=== PATIENT | female | born 1950 | race Two or more races ===

== ENCOUNTER 2020-03-04 21:53 | Inpatient (IN) ==
--- NOTE | 2020-03-04 22:21 | ERNOTE ---
Dyspnea - General Presenting Symptoms: shortness of breath Time Seen by Provider: 03/04/20 22:14 Source: patient Exam Limitations: no limitations - Immun/Allergies/Home Medications Immunizations: IMMUNIZATION HX Immunizations Up to Date Yes History of Influenza Vaccine Yes Hx Pneumococcal Vaccination Yes Allergies/Adverse Reactions: Allergies penicillin G Allergy (Unknown, Verified 03/04/20 22:08) oxycodone Adverse Reaction (Verified 03/04/20 22:08) hallucinations Home Medications: HOME MEDICATIONS albuterol sulfate 90 mcg/actuation aerosol inhaler 2 inh IH Q4H PRN 10/22/17 [Last Taken Unknown] blood-glucose meter See Dose Instructions .ROUTE .MEDSUPPLY #1 ea 01/10/18 [Last Taken Unknown] lancets See Dose Instructions .ROUTE .MEDSUPPLY #100 ea 01/10/18 [Last Taken Unknown] fluticasone 250 mcg-salmeterol 50 mcg/dose blistr powdr for inhalation 1 inh IH BID #60 ea 01/05/19 [Last Taken Unknown] acetaminophen 325 mg tablet 325 mg PO Q6H PRN 05/24/19 [Last Taken Unknown] potassium chloride 10 mEq capsule,extended release 10 meq PO DAILY cap 06/06/19 [Last Taken Unknown] ropinirole 1 mg tablet 1 mg PO TID PRN #90 tab 08/23/19 [Last Taken Unknown] amlodipine 10 mg tablet 10 mg PO DAILY #90 tab 09/06/19 [Last Taken Unknown] blood sugar diagnostic See Dose Instructions .ROUTE .MEDSUPPLY #100 ea 09/06/19 [Last Taken Unknown] famotidine 40 mg tablet 40 mg PO DAILY #30 tab 09/06/19 [Last Taken Unknown] montelukast 10 mg tablet 10 mg PO QPM #30 tab 09/06/19 [Last Taken Unknown] metoprolol succinate 50 mg tablet,extended release 24 hr 50 mg PO BID #60 tab 09/22/19 [Last Taken Unknown] furosemide 40 mg tablet 40 mg PO DAILY PRN #30 tab 12/07/19 [Last Taken Unknown] venlafaxine 150 mg capsule,extended release 24 hr 150 mg PO DAILY #90 cap 12/13/19 [Last Taken Unknown] losartan 100 mg tablet 100 mg PO DAILY #30 tab 02/14/20 [Last Taken Unknown] ketoconazole 2 % topical cream 1 applic TP BID 14 Days #60 g 02/20/20 [Last Taken Unknown] metformin 500 mg tablet 500 mg PO BID #60 tab 02/20/20 [Last Taken Unknown] - History of Present Illness Narrative: Patient states she thinks she has been more short of breath over the last couple of weeks. Her daughter states that she has been worse over the past 2 to 3 days. When the daughter called mariana the patient was unable to complete full sentences because of her shortness of breath. Patient states she did have some productive sputum with her cough that was clear. Severity: moderate Treatment CERTIFIED OPHTHALMIC SURGICAL ASSISTANT: none Modifying Factors - (Improves): Reports: rest Modifying Factors (Worsens): Reports: activity Review of Systems - Review of Systems Constitutional: Present: See HPI, recent illness, chills, fatigue EYE: Absent: vision changes ENT: Absent: nose congestion, nasal drainage Respiratory: Present: shortness of breath, cough Cardiology: Absent: chest pain, palpitations Gastrointestinal/Abdominal: Present: diarrhea. Absent: nausea, vomiting Genitourinary: Present: frequency. Absent: dysuria Musculoskeletal: Absent: back pain, muscle pain Skin: Absent: rash Neurological: Absent: headache, dizziness/light-headedness Endocrine: Absent: excessive sweating Hematologic/Lymphatic: Absent: easy bruising Psych: Absent: anxiety Medical History (Last Reviewed 03/04/20 @ 22:18 by Maikel Sosa DO) Diverticulitis (Acute) Onset Date: ~10/2019 Gastroesophageal reflux disease (Chronic) Type 2 diabetes mellitus (Chronic) Onset Date: Unknown Morbid obesity (Chronic) Onset Date: Unknown Medial epicondylitis of left elbow (Acute) Onset Date: Unknown Hypertension (Chronic) Onset Date: Unknown Depression (Chronic) Onset Date: Unknown Asthma (Chronic) Onset Date: Unknown Mild acid reflux Onset Date: ~2018 Refused influenza vaccine Onset Date: ~01/31/18 deferred Surgical History: Surgical History (Last Reviewed 03/04/20 @ 22:18 by Maikel Sosa DO) H/O colonoscopy Onset Date: ~04/2018 [facility]: [facility] H/O toe surgery Onset Date: Unknown History of bilateral knee arthroplasty Onset Date: ~2014 History of esophagogastroduodenoscopy (EGD) Onset Date: ~04/2018 [facility]: [facility] History of hysterectomy Onset Date: Unknown History of removal of ovarian cyst Onset Date: Unknown History of shoulder surgery Onset Date: Unknown left Hx of cholecystectomy Onset Date: Unknown Family History: Family History (Last Reviewed 03/04/20 @ 22:18 by Maikel Sosa DO) Father Cancer Mother Melanoma Social History: (Last Reviewed 03/04/20 @ 22:18 by Maikel Sosa DO) Social History: adopted: No foster care: No fdc: No Marital status: household members: spouse number of children: 2 caregiver/support person: No current occupational status: retired Highest level of school completed/degree received: high school graduate Service: No Tobacco: Smoking Status: Never smoker Alcohol: alcohol intake: current alcohol intake frequency: holiday/special occasion Substance Use: substance use type: does not use Dietary Habits: caffeine: Yes caffeine comment: some days eating out: rarely or never Physical Exam - Physical Exam General Appearance: Present: wd/wn, alert, no apparent distress Head Exam: Present: normal inspection, no evidence of injury Eye Exam: Normal inspection: bilateral Neck: Present: normal inspection, nontender, supple Respiratory: Present: normal breath sounds, no accessory muscle use, lungs clear, other - Mild tachypnea Cardiovascular/Chest: Present: no murmur, tachycardia Gastrointestinal/Abdominal: Present: nontender, nondistended, soft Back Exam: Present: normal inspection, normal range of motion, no vertebral tenderness Extremity Exam: Present: normal inspection, normal range of motion, no edema Neurological Exam: Present: alert, oriented, normal mood/affect, no motor/sensory deficits Skin Exam: Present: normal color, warm/dry Lymphatic Exam: Present: no adenopathy Progress - Results and Orders Patient's Lab Results:: I have reviewed the patient's lab results. Results and Orders: Laboratory Tests 03/04/20 03/04/20 03/04/20 22:30 22:30 22:30 WBC 7.1 Hgb 12.9 Hct 39.9 Plt Count 176 Sodium 131 L Potassium 3.7 Chloride 93 L Anion Gap 14.3 H BUN 13 Creatinine 0.77 Random Glucose 182 H Lactic Acid, Venous 1.5 Calcium 8.8 Total Bilirubin 0.6 AST 51 H ALT 29 Alkaline Phosphatase 68 B-Natriuretic Peptide 174 Total Protein 7.4 Albumin 2.8 L SARS-CoV-2 (PCR) 03/04/20 22:55 WBC Hgb Hct Plt Count Sodium Potassium Chloride Anion Gap BUN Creatinine Random Glucose Lactic Acid, Venous Calcium Total Bilirubin AST ALT Alkaline Phosphatase B-Natriuretic Peptide Total Protein Albumin SARS-CoV-2 (PCR) Detected H - Vital Signs Patient's Vital Signs:: I have reviewed the patient's vital signs. Vital Signs: Vital Signs 03/04/20 22:09 Temperature 38.6 C H Pulse Rate 108 H Respiratory Rate 25 H Blood Pressure 129/96 H O2 Sat by Pulse Oximetry 86 L - X-Ray X-Ray #1 X-Ray: chest Interpretation: Interp. by me X-ray Comments: Patchy infiltrates mainly on the left. No pleural effusions no pneumothorax. Cardiac silhouette is borderline enlarged. - Progress/Reassessment Chief Complaint: Dyspnea Progress Note-Subjective: 03/05/20 00:[address] Zamarripa he agrees with admission for Covid pneumonia. Departure Clinical Impression: Pneumonia due to 2019 novel coronavirus - Departure Disposition: Still a patient Condition: Fair Referrals: Janki Montoya FNP [Primary Care Provider] -
[2020-03-04 22:39] LABS: Hematocrit 39.9 % (37.0-47.0); Hemoglobin 12.9 gm/dL (12.5-16.0); Mean Cell Volume 85.3 fl (78-100); Mean Corpuscular Hemoglobin 27.6 pg (27-31); Mean Corpuscular Hgb Conc 32.3 g/dl (32-36); Mean Platelet Volume 11.6 fl (8-12.5); Neutrophil % 70.1 % (42-75.0); Platelet Count 176 K/mm3 (150-450); Red Blood Count 4.68 M/mm3 (4.2-5.4); Red Cell Distribution Width 13.7 % (11.5-14.0); White Blood Count 7.1 K/mm3 (4.0-10.5)
[2020-03-04 23:09] LABS: Albumin * 2.8 gm/dl (3.4-5.0); Anion Gap 14.3 mmol/L (6.8-13.8); BUN/Creatinine Ratio 16.9 (9.0-21.6); Bilirubin, Total 0.6 mg/dL (0.0-1.1); Ca. Corrected For Albumin 9.4 mg/dL (8.4-10.2); Calcium * 8.8 mg/dL (7.9-10.9); Carbon Dioxide 27.4 mmol/L (24-32.6); Potassium 3.7 mmol/L (3.4-4.6); Total Protein 7.4 gm/dL (6.2-8.2)
[2020-03-04] MEDS ORDERED: ACETAMINOPHEN 500 MG TABLET PO ONE (23:25)
[2020-03-05] MEDS ORDERED: ACETAMINOPHEN 325 MG TABLET PO PRN (09:46)
[2020-03-05] MEDS ORDERED: rOPINIRole HCL 1 MG TABLET PO PRN (09:46)
[2020-03-05] MEDS ORDERED: FUROSEMIDE 40 MG TABLET PO PRN (09:46)
[2020-03-05] MEDS: FAMOTIDINE 20 MG TABLET PO SCH (10:43)
[2020-03-05] MEDS: metFORMIN HCL 500 MG TABLET PO SCH ×2 (10:44→17:51)
[2020-03-05] MEDS: LOSARTAN POTASSIUM 50 MG TABLET PO SCH (10:44)
[2020-03-05] MEDS: ENOXAPARIN SODIUM 80 MG/0.8 ML DISP.SYRIN SC SCH ×2 (10:44→21:17)
[2020-03-05] MEDS: METOPROLOL SUCCINATE 50 MG TABLET.SA PO SCH ×2 (10:44→20:44)
[2020-03-05] MEDS: amLODIPine BESYLATE 10 MG TABLET PO SCH (10:44)
[2020-03-05] MEDS: VENLAFAXINE HCL 150 MG CAP.SR.24H PO SCH (10:59)
[2020-03-05] MEDS: FLUTICASONE PROPION/SALMETEROL 14 PUFF DISK.W.DEV IH SCH ×2 (11:01→20:41)
[2020-03-05] MEDS: ALBUTEROL SULFATE 200 PUFF INHALER IH PRN (11:01)
[2020-03-05] MEDS: DEXAMETHASONE SODIUM PHOSP/PF 10 MG/ML VIAL IV SCH (11:15)
--- NOTE | 2020-03-05 11:19 | HP ---
Chief Complaint - Chief Complaint Date of Service: 03/05/20 Time of Service: 11:19 Chief Complaint: shortness of breath, cough, hypoxia History of Present Illness: 69 year old female with hx of DM, HTN, morbid obesity admitted due to hypoxia an d shortness of breath. States she hasn't been feeling well for roughly a week, progressively worsened over the last couple days. She was brought to the ER due to this, found to be hypoxic but responded to o2 via NC. SHe was also found to be covid positive. CXR negative in the ER. Normal WBC. Normal chem panel. She was admitted due to hypoxia, SOB. She has had fevers off and on. Medical History (Last Reviewed 03/05/20 @ 06:28 by Jocelyn Hernadez RN) Diverticulitis (Acute) Onset Date: ~10/2019 Gastroesophageal reflux disease (Chronic) Type 2 diabetes mellitus (Chronic) Onset Date: Unknown Morbid obesity (Chronic) Onset Date: Unknown Medial epicondylitis of left elbow (Acute) Onset Date: Unknown Hypertension (Chronic) Onset Date: Unknown Depression (Chronic) Onset Date: Unknown Asthma (Chronic) Onset Date: Unknown Mild acid reflux Onset Date: ~2018 Refused influenza vaccine Onset Date: ~01/31/18 deferred Surgical History: Surgical History (Last Reviewed 03/05/20 @ 06:28 by Jocelyn Hernadez RN) H/O colonoscopy Onset Date: ~04/2018 [facility]: [facility] H/O toe surgery Onset Date: Unknown History of bilateral knee arthroplasty Onset Date: ~2014 History of esophagogastroduodenoscopy (EGD) Onset Date: ~04/2018 [facility]: [facility] History of hysterectomy Onset Date: Unknown History of removal of ovarian cyst Onset Date: Unknown History of shoulder surgery Onset Date: Unknown left Hx of cholecystectomy Onset Date: Unknown Family History: Family History (Last Reviewed 03/05/20 @ 06:28 by Jocelyn Hernadez RN) Father Cancer Mother Melanoma Social History: (Last Reviewed 03/05/20 @ 06:28 by Jocelyn Hernadez RN) Social History: adopted: No foster care: No mcfp: No Marital status: household members: spouse number of children: 2 caregiver/support person: No current occupational status: retired Highest level of school completed/degree received: high school graduate Service: No Tobacco: Smoking Status: Never smoker Alcohol: alcohol intake: current alcohol intake frequency: holiday/special occasion Substance Use: substance use type: does not use Dietary Habits: caffeine: Yes caffeine comment: some days eating out: rarely or never Review Of Systems (GEN) - Review of Systems Generalized/Overall Review: Present: Weakness, Fever. Absent: Chills EENTM: Present: No Symptoms Reported Respiratory: Present: Cough, Shortness of Breath Cardiac: Absent: Chest Pain, Edema Abdominal: Present: No Symptoms Reported Genitourinary: Present: No Symptoms Reported Musculoskeletal: Present: No Symptoms Reported Neurological: Present: No Symptoms Reported Skin: Present: No Symptoms Reported Endocrine: Present: No Symptoms Reported Immunizations: IMMUNIZATION HX Immunizations Up to Date Yes History of Influenza Vaccine Yes Hx Pneumococcal Vaccination Yes Allergies/Adverse Reactions: Allergies Allergy/AdvReac Type Severity Reaction Status Date / Time penicillin G Allergy Unknown Verified 03/04/20 22:08 oxycodone AdvReac hallucinati Verified 03/04/20 22:08 ons Home Medications: HOME MEDICATIONS blood-glucose meter See Dose Instructions .ROUTE .MEDSUPPLY #1 ea 01/10/18 [Last Taken Unknown] lancets See Dose Instructions .ROUTE .MEDSUPPLY #100 ea 01/10/18 [Last Taken Unknown] acetaminophen 325 mg tablet 325 mg PO Q6H PRN 05/24/19 [Last Taken Unknown] ropinirole 1 mg tablet 1 mg PO TID PRN #90 tab 08/23/19 [Last Taken Unknown] amlodipine 10 mg tablet 10 mg PO DAILY #90 tab 09/06/19 [Last Taken Unknown] blood sugar diagnostic See Dose Instructions .ROUTE .MEDSUPPLY #100 ea 09/06/19 [Last Taken Unknown] famotidine 40 mg tablet 40 mg PO DAILY #30 tab 09/06/19 [Last Taken Unknown] montelukast 10 mg tablet 10 mg PO QPM #30 tab 09/06/19 [Last Taken Unknown] metoprolol succinate 50 mg tablet,extended release 24 hr 50 mg PO BID #60 tab 09/22/19 [Last Taken Unknown] losartan 100 mg tablet 100 mg PO DAILY #30 tab 02/14/20 [Last Taken Unknown] ketoconazole 2 % topical cream 1 applic TP BID 14 Days #60 g 02/20/20 [Last Taken Unknown] metformin 500 mg tablet 500 mg PO BID #60 tab 02/20/20 [Last Taken Unknown] Venlafaxine HCl [Venlafaxine HCl ER] 150 mg PO DAILY 03/05/20 [Last Taken Unknown] rOPINIRole HCL [Requip] 1 mg PO TID PRN 03/05/20 [Last Taken Unknown] Exam - Exam Vital Signs: Vital Signs - Last Taken Temp 37.9 C 03/05/20 11:06 Pulse 90 03/05/20 10:44 Resp 24 H 03/05/20 09:21 BP 146/65 03/05/20 10:44 Pulse Ox 93 03/05/20 11:06 Constitutional: Present: Alert, Oriented x3, Mild distress - shortness of breath, weakness ENT Exam: Present: hearing grossly normal Eye Exam: bilateral eye: normal inspection, EOMI Neck: Present: non-tender, supple Respiratory: Present: lungs clear, normal breath sounds Cardiovascular/Chest: Present: regular rate, rhythm, no murmur Abdomen: Present: soft, nontender, obese Skin Exam: Present: normal color, warm/dry Appearance: Present: appropriate appearance, appropriate insight Thoughts: Present: normal thought pattern, normal mood /affect Diagnostic Studies: Abnormal Lab Results 03/04/20 03/04/20 03/04/20 Range/Units 22:30 22:30 22:55 Lymphocytes % 18.3 L (20-51) % Monocytes % 10.9 H (0.0-9) % Lymphocytes # 1.31 L (1.5-3.5) k/mm3 Sodium 131 L (132-142) mmol/L Chloride 93 L (97-106) mmol/L Anion Gap 14.3 H (6.8-13.8) mmol/L Random Glucose 182 H (70-110) mg/dL AST 51 H (0-48) U/L Albumin 2.8 L (3.4-5.0) gm/dl SARS-CoV-2 (PCR) Detected H (NotDetected) Laboratory Results WBC 7.1 K/mm3 (4.0-10.5) 03/04/20 22:30 RBC 4.68 M/mm3 (4.2-5.4) 03/04/20 22:30 Hgb 12.9 gm/dL (12.5-16.0) 03/04/20 22:30 Hct 39.9 % (37.0-47.0) 03/04/20 22: MCV 85.3 fl (78-100) 03/04/20 22: MCH 27.6 pg (27-31) 03/04/20: MCHC 32.3 g/dl (32-36) 03/04/20: RDW 13.7 % (11.5-14.0) 03/04/20: Plt Count 176 K/mm3 (150-450) 03/04/20: MPV 11.6 fl (8-12.5) 03/04/20 22: Immature Gran % (Auto) 0.40 % (0.001-0.429) 03/04/20: Immature Gran # (Auto) 0.03 K/mm3 (0.000-0.0310) 03/04/20: Neutrophils % 70.1 % (42-75.0) 03/04/20 22: Lymphocytes % 18.3 % (20-51) L 03/04/20: Monocytes % 10.9 % (0.0-9) H 03/04/20: Eosinophils % 0.0 % (0.0-3.0) 03/04/20: Basophils % 0.3 % (0.0-1.0) 03/04/20: Nucleated RBC % 0.0 k/mm3 (0-1) 03/04/20 22: Neutrophils # 5.0 K/mm3 (1.3-6.0) 03/04/20: Lymphocytes # 1.31 k/mm3 (1.5-3.5) L 03/04/20: Monocytes # 0.8 k/mm3 (0.0-1.0) 03/04/20: Eosinophils # 0.0 k/mm3 (0.0-0.7) 03/04/20: Absolute Basophils 0.0 k/mm3 (0.0-0.1) 03/04/20 22:30 Sodium 131 mmol/L (132-142) L 03/04/20 22: Plasma Sodium 132 mmol/L (130-142) 03/04/20 22: Potassium 3.7 mmol/L (3.4-4.6) 03/04/20 22:30 Chloride 93 mmol/L (97-106) L 03/04/20 22:30 Carbon Dioxide 27.4 mmol/L (24-32.6) 03/04/20 22:30 Anion Gap 14.3 mmol/L (6.8-13.8) H 03/04/20 22:30 BUN 13 mg/dL (3-23) 03/04/20 22:30 Creatinine 0.77 mg/dL (0.4-1.4) 03/04/20 22:30 Est GFR (Non-Af Amer) 79 mL/min (60-130) D 03/04/20 22:30 BUN/Creatinine Ratio 16.9 (9.0-21.6) 03/04/20 22:30 Random Glucose 182 mg/dL (70-110) H 03/04/20 22:30 Lactic Acid, Venous 1.5 mmol/L (0.4-2.0) 03/04/20 22:30 Calcium 8.8 mg/dL (7.9-10.9) 03/04/20 22:30 Calcium Adj for Albumin 9.4 mg/dL (8.4-10.2) 03/04/20 22:30 Total Bilirubin 0.6 mg/dL (0.0-1.1) 03/04/20 22:30 AST 51 U/L (0-48) H 03/04/20 22:30 ALT 29 U/L (19-67) 03/04/20 22:30 Alkaline Phosphatase 68 U/L (50-170) 03/04/20 22:30 B-Natriuretic Peptide 174 pg/mL (5-325) 03/04/20 22:30 Total Protein 7.4 gm/dL (6.2-8.2) 03/04/20 22:30 Albumin 2.8 gm/dl (3.4-5.0) L 03/04/20 22:30 SARS-CoV-2 (PCR) Detected (NotDetected) H 03/04/20 22:55 Assessment/Plan - Assessment/Plan (1) Pneumonia due to 2019 novel coronavirus Assessment: On lovenox, decadron. Maintaining her sats of o2 via NC. Problem: Acute (2) Type 2 diabetes mellitus Assessment: Blood glucose monitoring ACHS. SLiding scale insulin ordered. Problem: Chronic Qualifiers: Diabetes mellitus retirement insulin use: without retirement use Diabetes mellitus complication status: without complication Qualified Code(s): E11.9 - Type 2 diabetes mellitus without complications (3) Morbid obesity Problem: Chronic (4) Hypertension Assessment: stable Problem: Chronic Qualifiers: Hypertension type: essential hypertension Qualified Code(s): I10 - Essential (primary) hypertension (5) Gastroesophageal reflux disease Assessment: continue pepcid Problem: Chronic Qualifiers: Esophagitis presence: esophagitis presence not specified Qualified Code(s): K21.9 - Gastro-esophageal reflux disease without esophagitis
[2020-03-05] MEDS: INSULIN LISPRO 100 UNITS/ML VIAL SC SCH ×3 (12:02→20:45)
[2020-03-05] MEDS ORDERED: MONTELUKAST SODIUM 10 MG TABLET PO SCH (17:00)
[2020-03-05] MEDS: KETOCONAZOLE APPL TP SCH (20:41)
[2020-03-06] MEDS: ALBUTEROL SULFATE 200 PUFF INHALER IH PRN (05:52)
[2020-03-06] MEDS: INSULIN LISPRO 100 UNITS/ML VIAL SC SCH ×2 (07:30→12:39)
[2020-03-06] MEDS: FLUTICASONE PROPION/SALMETEROL 14 PUFF DISK.W.DEV IH SCH (08:27)
[2020-03-06] MEDS: KETOCONAZOLE APPL TP SCH (08:27)
[2020-03-06] MEDS: DEXAMETHASONE SODIUM PHOSP/PF 10 MG/ML VIAL IV SCH (08:28)
[2020-03-06] MEDS: LOSARTAN POTASSIUM 50 MG TABLET PO SCH (08:29)
[2020-03-06] MEDS: metFORMIN HCL 500 MG TABLET PO SCH (08:30)
[2020-03-06] MEDS: METOPROLOL SUCCINATE 50 MG TABLET.SA PO SCH (08:30)
[2020-03-06] MEDS: FAMOTIDINE 20 MG TABLET PO SCH (08:30)
[2020-03-06] MEDS: amLODIPine BESYLATE 10 MG TABLET PO SCH (08:31)
[2020-03-06] MEDS: VENLAFAXINE HCL 150 MG CAP.SR.24H PO SCH (08:32)
[2020-03-06] MEDS ORDERED: POTASSIUM CHLORIDE 10 MEQ TABLET.SA PO SCH (09:00)
[2020-03-06] MEDS: ENOXAPARIN SODIUM 80 MG/0.8 ML DISP.SYRIN SC SCH (09:48)
[2020-03-06] MEDS ORDERED: FUROSEMIDE 10 MG/ML VIAL IV ONE (10:06)
[2020-03-06] MEDS ORDERED: LORazepam 2 MG/ML DISP.SYRIN IV ONE ×3 (10:10→11:30)
[2020-03-06 10:24] LABS: Hematocrit 36.9 % (37.0-47.0); Hemoglobin 12.1 gm/dL (12.5-16.0); Mean Cell Volume 84.6 fl (78-100); Mean Corpuscular Hemoglobin 27.8 pg (27-31); Mean Corpuscular Hgb Conc 32.8 g/dl (32-36); Mean Platelet Volume 11.8 fl (8-12.5); Neutrophil # 13.5 K/mm3 (1.3-6.0); Neutrophil % 88.2 % (42-75.0); Platelet Count 215 K/mm3 (150-450); Red Blood Count 4.36 M/mm3 (4.2-5.4); Red Cell Distribution Width 13.7 % (11.5-14.0); White Blood Count 15.2 K/mm3 (4.0-10.5)
[2020-03-06] MEDS ORDERED: MORPHINE SULFATE 4 MG/ML SYRG IV ONE (10:39)
[2020-03-06 10:51] LABS: ALT 30 U/L (19-67); AST 44 U/L (0-48); Albumin * 2.7 gm/dl (3.4-5.0); Alkaline Phosphatase * 57 U/L (50-170); Anion Gap 13.1 mmol/L (6.8-13.8); BUN/Creatinine Ratio 26.2 (9.0-21.6); Bilirubin, Total 0.4 mg/dL (0.0-1.1); Blood Urea Nitrogen 37 mg/dL (3-23); Ca. Corrected For Albumin 9.9 mg/dL (8.4-10.2); Calcium * 9.2 mg/dL (7.9-10.9); Chloride 95 mmol/L (97-106); Glucose * 149 mg/dL (70-110); Potassium 3.1 mmol/L (3.4-4.6); Sodium 131 mmol/L (132-142); Troponin I Less than 0.017 ng/mL (0.00-0.10)
[2020-03-06] MEDS: ACETAMINOPHEN 1,000 MG/100 ML BTL IV ONE ×2 (10:55→11:26)
--- NOTE | 2020-03-06 11:18 | PN ---
Subjective - Date and Time Seen Date: 03/06/20 Time: 11:01 Subjective Narrative: Brittany became acute confused, restless, and hypoxic. Dr. Merritt was called and rapid response team was present. I was present on the floor and responded to the room in addition to the rapid response team. Patient was restless and hypoxic down to 70% on 10lpm of oxi mask. She was initially moved to non-rebreather, but failed to get above 80%. She was then placed on bipap and adjusted to 18/10 with rate of 16 and FiO2 of 100%. With these settings her oxygenation maintained above 90%. Chest xray completed which shows bilateral pulmonary infiltrates and potential for ARDS. She was given IV lasix 40mg. IV tylenol given for fever. She was given IV ativan and morphine for restlessness and dyspnea. She was placed on soft restraints due to grabbing and pulling at life saving lines and oxygen tubing. Objective - Vitals Vitals: Last Vital Signs Temp 36.0 C 03/06/20 06:00 Pulse 90 03/06/20 10:21 Resp 22 H 03/06/20 06:00 BP 127/66 03/06/20 10:21 Pulse Ox 93 03/06/20 06:00 - Abnormal Lab Findings Abnormal Lab Findings: Abnormal Lab Results 03/06/20 03/06/20 03/06/20 Range/Units 04:29 10:00 10:10 WBC 15.2 H D (4.0-10.5) K/mm3 Hgb 12.1 L (12.5-16.0) gm/dL Hct 36.9 L (37.0-47.0) % Immature Gran % (Auto) 0.50 H (0.001-0.429) % Immature Gran # (Auto) 0.07 H (0.000-0.0310) K/mm3 Neutrophils % 88.2 H (42-75.0) % Lymphocytes % 6.0 L (20-51) % Neutrophils # 13.5 H (1.3-6.0) K/mm3 Lymphocytes # 0.92 L (1.5-3.5) k/mm3 pO2 48.3 L 47.7 L (83.0-108.0) mmHg Total CO2 26.0 H 24.4 H (19.0-24.0) mmol/L ABG pH 7.46 H (7.35-7.45) ABG O2 Sat (Measured) 86.3 L 82.9 L (94.0-98.0) % Sodium (132-142) mmol/L Potassium (3.4-4.6) mmol/L Chloride (97-106) mmol/L BUN (3-23) mg/dL Creatinine (0.4-1.4) mg/dL Est GFR (Non-Af Amer) (60-130) mL/min BUN/Creatinine Ratio (9.0-21.6) Random Glucose (70-110) mg/dL Albumin (3.4-5.0) gm/dl 03/06/ Range/Units 10:10 WBC (4.0-10.5) K/mm3 Hgb (12.5-16.0) gm/dL Hct (37.0-47.0) % Immature Gran % (Auto) (0.001-0.429) % Immature Gran # (Auto) (0.000-0.0310) K/mm3 Neutrophils % (42-75.0) % Lymphocytes % (20-51) % Neutrophils # (1.3-6.0) K/mm3 Lymphocytes # (1.5-3.5) k/mm3 pO2 (83.0-108.0) mmHg Total CO2 (19.0-24.0) mmol/L ABG pH (7.35-7.45) ABG O2 Sat (Measured) (94.0-98.0) % Sodium 131 L (132-142) mmol/L Potassium 3.1 L (3.4-4.6) mmol/L Chloride 95 L (97-106) mmol/L BUN 37 H D (3-23) mg/dL Creatinine 1.41 H D (0.4-1.4) mg/dL Est GFR (Non-Af Amer) 39 L D (60-130) mL/min BUN/Creatinine Ratio 26.2 H (9.0-21.6) Random Glucose 149 H (70-110) mg/dL Albumin 2.7 L (3.4-5.0) gm/dl - Exam Constitutional: Present: Alert, Severe distress, Other - confused Respiratory: Present: respiratory distress - tachypnea at 40 respirations/min, decreased breath sounds, crackles Cardiovascular/Chest: Present: no murmur, tachycardia Abdomen: Present: Normal bowel sounds, soft Skin Exam: Present: other - cyanotic Assessment/Plan Plan Narrative: Brittany is a 69 yo female who developed sudden ARDS and worsening acute respiratory failure secondary to COVID-19 pneumonia. She is now on BIPAP 18/8 with rate of 16 and 100% FiO2. She is needing soft restraints, ativan, and morphine to help care, aggitation, restlessness, and dyspnea. She was given IV tylenol for fever. Given IV lasix due to respiratory failure from COVID and ARDS. Will monitor arterial blood gas and adjust as needed. Critical Care Time for the care described above was approximately 1.5 hours. - Problems/Diagnosis (1) Acute respiratory failure due to COVID-19 Problem: Acute (2) Pneumonia due to 2019 novel coronavirus Problem: Acute (3) ARDS (adult respiratory distress syndrome) Problem: Acute Evaluation Type: Initial (1) Acute respiratory failure due to COVID-19 Problem: Acute (2) Pneumonia due to 2019 novel coronavirus Problem: Acute (3) ARDS (adult respiratory distress syndrome) Problem: Acute Evaluation of the patient's immediate situation:: Brittany is in need of life saving IV medication and oxygen tubing. She is grabbing and pulling at lines and a threat to her life. She was placed in soft restraints for self protection of life saving care. Restraint - Indication for Use: Behavior that is harmful, Unable to Follow Instruct, Placement/Patency of line Patient's reaction to the intervention:: With restraints lines and tubing were safe from removal. Behavioral Assessment: Agitated Continue Restraints: Yes - Need continue protection of life saving lines/tubing Discontinue Restraints: No
[2020-03-06] MEDS ORDERED: AZITHROMYCIN 500 MG in DEXTROSE 5 % IN WATER 250 ML IV SCH ×2 (11:30)
[2020-03-06] MEDS ORDERED: NORMAL SALINE 500 ML IV ONE (12:53)
[2020-03-06] MEDS ORDERED: NOREPINEPHRINE BITARTRATE 4 MG in DEXTROSE 5 % IN WATER 496 ML IV PRN ×2 (16:41)
[2020-03-06] MEDS ORDERED: PROPOFOL 1,000 MG/100 ML PIGGYBACK IV PRN (16:41)
--- NOTE | 2020-03-06 17:00 | DS ---
Transfer Discharge Summary - Diagnosis(s)/Problems (1) ARDS (adult respiratory distress syndrome) Problem: Acute (2) Acute respiratory failure due to COVID-19 Problem: Acute (3) Pneumonia due to 2019 novel coronavirus Problem: Acute (4) Type 2 diabetes mellitus Problem: Chronic (5) Morbid obesity Problem: Chronic (6) Hypertension Problem: Chronic (7) Gastroesophageal reflux disease Problem: Chronic - Course Description of Stay: 69-year-old female with history of diabetes, hypertension, obesity was admitted to the hospital due to shortness of breath and cough. Found to be Covid positive. Initially was alert and oriented, satting well on 3 L. Yesterday she was talkative and in no respiratory distress. Today she became hypoxic and combative. She had to be placed on BiPAP and was given some medication help her calm down. Multiple ABG showed worsening hypoxia. Patient developed acute respiratory distress after being maxed out on BiPAP. Chest x-ray obtained which was consistent with Covid pneumonia but due to worsening white blood cell count ( likely due to Decadron), patient was covered for community-acquired pneumonia and started on azithromycin and Rocephin. She was satting mid 80s on 100% FiO2 with pressures of 18/8 and rate of 16. It was decided that patient needed to be intubated. Due to soft pressures, patient was started on Levophed drip prior to being intubated. Propofol use for sedation. Due to acutely worsening clinical picture, patient to be transferred to [facility]. Transfer was accepted. Procedures Performed: see notes below - Intubation - Results and Findings Results and Findings: Laboratory Results - last 24 hr 03/06/20 03/06/20 03/06/20 04:29 10:00 10:10 WBC 15.2 H D RBC 4.36 Hgb 12.1 L Hct 36.9 L MCV 84.6 MCH 27.8 MCHC 32.8 RDW 13.7 Plt Count 215 MPV 11.8 Immature Gran % (Auto) 0.50 H Immature Gran # (Auto) 0.07 H Neutrophils % 88.2 H Lymphocytes % 6.0 L Monocytes % 5.2 Eosinophils % 0.0 Basophils % 0.1 Nucleated RBC % 0.0 Neutrophils # 13.5 H Lymphocytes # 0.92 L Monocytes # 0.8 Eosinophils # 0.0 Absolute Basophils 0.0 pCO2 36.1 39.9 pO2 48.3 L 47.7 L HCO3 24.9 23.1 Total CO2 26.0 H 24.4 H Base Excess 1.2 -1.8 ABG pH 7.46 H 7.38 ABG O2 Sat (Measured) 86.3 L 82.9 L Sodium Plasma Sodium Potassium Chloride Carbon Dioxide Anion Gap BUN Creatinine Est GFR (Non-Af Amer) BUN/Creatinine Ratio Random Glucose Calcium Calcium Adj for Albumin Total Bilirubin AST ALT Alkaline Phosphatase Troponin I Total Protein Albumin 03/06/20 03/06/20 03/06/20 10:10 11:12 16:15 WBC RBC Hgb Hct MCV MCH MCHC RDW Plt Count MPV Immature Gran % (Auto) Immature Gran # (Auto) Neutrophils % Lymphocytes % Monocytes % Eosinophils % Basophils % Nucleated RBC % Neutrophils # Lymphocytes # Monocytes # Eosinophils # Absolute Basophils pCO2 37.2 46.6 H pO2 61.2 L 48.8 L HCO3 24.6 25.3 Total CO2 25.8 H 26.7 H Base Excess 0.7 -0.6 ABG pH 7.44 7.35 ABG O2 Sat (Measured) 92.4 L 82.4 L Sodium 131 L Plasma Sodium 132 Potassium 3.1 L Chloride 95 L Carbon Dioxide 26.0 Anion Gap 13.1 BUN 37 H D Creatinine 1.41 H D Est GFR (Non-Af Amer) 39 L D BUN/Creatinine Ratio 26.2 H Random Glucose 149 H Calcium 9.2 Calcium Adj for Albumin 9.9 Total Bilirubin 0.4 AST 44 ALT 30 Alkaline Phosphatase 57 Troponin I Less than 0.017 Total Protein 7.0 Albumin 2.7 L - Medications Medications: Active Medications Acetaminophen (Acetaminophen 325 Mg Tablet) 325 mg PO Q6H PRN PRN Reason: Pain Stop: 04/04/20 09:47 Last Admin: 03/05/20 10:45 Dose: 325 mg Documented by: Albuterol Sulfate (Albuterol Sulfate 200 Puff Inhaler) 2 puff IH Q4H PRN PRN Reason: Dyspnea Stop: 04/04/20 09:47 Last Admin: 03/06/20 05:52 Dose: 2 puff Documented by: Amlodipine Besylate (Amlodipine Besylate 10 Mg Tablet) 10 mg PO DAILY [facility] Stop: 04/04/20 09:47 Last Admin: 03/06/20 08:31 Dose: 10 mg Documented by: Dexamethasone Sodium Phosphate (Dexamethasone Sodium Phosp/Pf 10 Mg/Ml Vial) 6 mg IV DAILY [facility] Stop: 04/04/20 11:01 Last Admin: 03/06/20 08:28 Dose: 6 mg Documented by: Enoxaparin Sodium (Enoxaparin Sodium 80 Mg/0.8 Ml Disp.Syrin) 80 mg SC Q12H [facility] Stop: 04/04/20 10:16 Last Admin: 03/06/20 09:48 Dose: 80 mg Documented by: Famotidine (Famotidine 20 Mg Tablet) 40 mg PO DAILY [facility] Stop: 04/04/20 10:01 Last Admin: 03/06/20 08:30 Dose: 40 mg Documented by: Ceftriaxone Sodium 1,000 mg/ (Dextrose/Water) 100 mls @ 200 mls/hr IV Q24H [facility]; Protocol Stop: 04/05/20 11:31 Last Infusion: 03/06/20 12:37 Dose: Infused Documented by: Azithromycin 500 mg/ Dextrose/ (Water) 250 mls @ 250 mls/hr IV Q24H [facility]; Protocol Stop: 04/05/20 11:31 Last Infusion: 03/06/20 13:43 Dose: Infused Documented by: Insulin Human Lispro (Insulin Lispro 100 Units/Ml Vial) 0 units SC ACHSINS [facility]; Protocol Stop: 04/04/20 12:01 Last Admin: 03/06/20 12:39 Dose: Not Given Documented by: Ketoconazole (Ketoconazole 30 Appl Tube) 1 appl TP BID [facility] Stop: 04/04/20 21:01 Last Admin: 03/06/20 08:27 Dose: 1 appl Documented by: Losartan Potassium (Losartan Potassium 50 Mg Tablet) 100 mg PO DAILY [facility] Stop: 04/04/20 10:01 Last Admin: 03/06/20 08:29 Dose: 100 mg Documented by: Metformin HCl (Metformin Hcl 500 Mg Tablet) 500 mg PO BIDWM [facility] Stop: 04/04/20 10:01 Last Admin: 03/06/20 08:30 Dose: 500 mg Documented by: Metoprolol Succinate (Metoprolol Succinate 50 Mg Tablet.Sa) 50 mg PO BID [facility] Stop: 04/04/20 10:01 Last Admin: 03/06/20 08:30 Dose: 50 mg Documented by: Montelukast Sodium (Montelukast Sodium 10 Mg Tablet) 10 mg PO QPM [facility] Stop: 04/04/20 17:01 Last Admin: 03/05/20 17:51 Dose: 10 mg Documented by: Potassium Chloride (Potassium Chloride 10 Meq Tablet.Sa) 10 meq PO DAILY [facility] Stop: 04/05/20 09:01 Last Admin: 03/06/20 08:30 Dose: 10 meq Documented by: Ropinirole HCl (Ropinirole Hcl 1 Mg Tablet) 1 mg PO TID PRN PRN Reason: restless leg(s) Stop: 04/04/20 09:47 Last Admin: 03/05/20 20:55 Dose: 1 mg Documented by: Fluticasone/Salmeterol (Fluticasone Propion/Salmeterol 14 Puff Disk.W.Dev) 1 puff IH BID [facility] Stop: 04/04/20 10:01 Last Admin: 03/06/20 08:27 Dose: 1 puff Documented by: Venlafaxine HCl (Venlafaxine Hcl 150 Mg Cap.Sr.24h) 150 mg PO DAILY [facility] Stop: 04/04/20 10:01 Last Admin: 03/06/20 08:32 Dose: 150 mg Documented by: Discontinued Medications Acetaminophen (Acetaminophen 500 Mg Tablet) 1,000 mg PO ONCE ONE Stop: 03/04/20 23:26 Last Admin: 03/04/20 23:32 Dose: 1,000 mg Documented by: Furosemide (Furosemide 10 Mg/Ml Vial) 40 mg IV ONCE ONE Stop: 03/06/20 10:07 Last Admin: 03/06/20 10:21 Dose: 40 mg Documented by: Acetaminophen (Ofirmev) 1,000 mg in 100 mls @ 400 mls/hr IV ONCE ONE Stop: 03/06/20 11:29 Last Admin: 03/06/20 11:26 Dose: Not Given Documented by: Sodium Chloride (Sodium Chloride 0.9%) 500 mls @ 999 mls/hr IV .Q31M ONE Stop: 03/06/20 13:23 Last Infusion: 03/06/20 13:44 Dose: Infused Documented by: Lorazepam (Lorazepam 2 Mg/Ml Disp.Syrin) 0.5 mg IV ONCE ONE Stop: 03/06/20 10:31 Last Admin: 03/06/20 11:25 Dose: Not Given Documented by: Lorazepam (Lorazepam 2 Mg/Ml Disp.Syrin) 1 mg IV ONCE ONE Stop: 03/06/20 11:31 Last Admin: 03/06/20 11:12 Dose: 1 mg Documented by: Morphine Sulfate (Morphine Sulfate 4 Mg/Ml Syrg) 4 mg IV ONCE ONE Stop: 03/06/20 10:40 Last Admin: 03/06/20 10:44 Dose: 4 mg Documented by: - Disposition Disposition: Short Term Hospital Inpatient Condition: Fair Discharge Date: 03/06/20 Discharge Time: 17:32
[2020-03-06] MEDS ORDERED: ROCURONIUM BROMIDE 10 MG/ML VIAL IV ONE (17:14)
--- NOTE | 2020-03-06 17:42 | ANES ---
Anesthesia Procedure Note Procedure Note: ANESTHESIA PROCEDURE NOTE Date of procedure: 03/06/2020. Time of procedure: 1715. Performed by: Clive Morris CRNA [employer]: None . Preprocedure diagnosis: Respiratory distress. COVID-19 positive.. Post procedure diagnosis: Same. Procedure: Endotracheal intubation Indications: Respiratory distress. Findings: The patient was given 80 mg of propofol and 120 mg of succinylcholine IV push. Ralls scope with a #3 cover was utilized for intubation. 7.0 [place] endotracheal tube inserted to 21 cm at the lip. Bilateral breath sounds equal. End-tidal CO2 positive. Approximately 10 minutes after intubation patient was restless and thrashing in the bed with a continuous propofol drip infusing. 50 mg of Zemuron was given IV push. EBL: Minimal. Fluids: N/A. Specimen: N/A. Post procedure condition: The patient tolerated the procedure well. No complications were noted. Thank you for this consultation Clive Morris CRNA
[2020-03-06 18:15] VITALS: BP 124/69
== END 2020-03-06 18:15 | disposition short-term general hospital (02) | DRG 208 ==
LOC: ER 21:53 → MS 03-05 00:02 → SCU 03-06 15:23
PROVIDERS: ADMIT Family Medicine; ATTEND Family Medicine